=== PATIENT | female | born 1990 | race American Indian/Alaskan Native ===

== ENCOUNTER 2020-12-25 19:02 | Emergency (ER) | payer OTHER ==
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
[2020-12-25 22:32] VITALS: BP 108/55
== END 2020-12-25 22:45 | disposition home or self-care (01) ==
LOC: ED 19:02
DX: M54.2 Cervicalgia (principal); M54.9 Dorsalgia, unspecified; Z79.899 Other long term (current) drug therapy; Z98.890 Other specified postprocedural states; V49.49XA Driver injured in collision with other motor vehicles in traffic accident, initial encounter; Y92.410 Unspecified street and highway as the place of occurrence of the external cause; Y93.89 Activity, other specified; Y99.8 Other external cause status
CPT/HCPCS: 99281